=== PATIENT | female | born 1945 | race Caucasian/White ===

== ENCOUNTER 2023-04-18 10:19 | Outpatient (OUT) | payer MEDICARE, OTHER, SELFPAY ==
--- NOTE | 2023-04-18 10:36 | XR_ITS ---
The [address] [address] Patient Name: MAC BRITTON MRN: [id number] date: 1945 Sex: F Assigned Patient Location: [facility] Current Patient Location: [facility] Accession/Order Number: [id number] Exam Date: 04/18/2023 10:48 Report Date: 04/18/2023 11:03 At the request of: CAMILLE OROURKE Procedure: XR knee RT 4V EXAM: XR knee RT 4V HISTORY: Primary Osteoarthritis of Right Knee M17.11, Knee Pain COMPARISON: None. TECHNIQUE: 4 views FINDINGS: There is no acute fracture or dislocation. There are no significant degenerative changes. The soft tissues are unremarkable. XR/XR knee RT 4V IMPRESSION: No acute fracture or dislocation. Electronically authenticated by: MORENITA COLIN Date: 04/18/2023 11:03
== END 2023-04-18 10:20 | disposition home or self-care (01) ==
PROVIDERS: PCP Internal Medicine; Visit Provider Physician Assistant
DX: M25.561 Pain in right knee (principal); G89.29 Other chronic pain; M17.11 Unilateral primary osteoarthritis, right knee
CPT/HCPCS: 73564

== ENCOUNTER 2024-03-02 07:46 | Outpatient (OUT) | payer MEDICARE, OTHER, SELFPAY ==
--- NOTE | 2024-03-02 08:13 | XR_ITS ---
[address] [address] Patient Name: MAC BRITTON MRN: [id number] date: 1945 Sex: F Assigned Patient Location: [facility] Current Patient Location: [facility] Accession/Order Number: [id number] Exam Date: 03/02/2024 08:00 Report Date: 03/02/2024 10:19 At the request of: CAMILLE OROURKE Procedure: XR DEXA axial skeleton EXAMINATION: XR DEXA axial skeleton HISTORY: Estrogen Deficiency E28.39 COMPARISON: DEXA bone densitometry 02/28/2022 TECHNIQUE: Dual-energy X-ray absorptiometry (DXA) was performed. FINDINGS: SPINE ANALYSIS: Average bone mineral density is 1.504 g/cm2. T-score (standard deviation relative to young adult mean): 2.7 . +11.0% change since prior study. HIP ANALYSIS: Lowest bone mineral density is within the right femoral neck, 0.842 g/cm2. T-score (standard deviation relative to young adult mean): -1.4 . -0.4% change since prior study. XR/XR DEXA axial skeleton IMPRESSION: World Health Organization Classification: Osteopenia - Moderate Fracture Risk FRAX: Cannot be calculated. Pharmacologic treatment recommendations * No uniform recommendation applies to all patients. Management plans must be individualized. * Consider initiating pharmacologic treatment in postmenopausal women and men >= 50 years of age who have the following: Primary fracture prevention: * T-score <= - 2.5 at the femoral neck, total hip, lumbar spine, 33% radius (some uncertainty with existing data) by DXA. * Low bone mass (osteopenia: T-score between - 1.0 and - 2.5) at the femoral neck or total hip by DXA with a 10-year hip fracture risk >= 3% or a 10-year major osteoporosis-related fracture risk >= 20% (i.e., clinical vertebral, hip, forearm, or proximal humerus) based on the [place]-adapted FRAXregistered model. Secondary fracture prevention: * Fracture of the hip or vertebra regardless of BMD [4, 5]. * Fracture of proximal humerus, pelvis, or distal forearm in persons with low bone mass (osteopenia: T-score between - 1.0 and - 2.5). The decision to treat should be individualized in persons with a fracture of the proximal humerus, pelvis, or distal forearm who do not have osteopenia or low BMD [12, 13]. Divina MS, Frank SL, Ghada KL, Axel EM, Donavon KG, AJ, Edin ES. The clinician's guide to prevention and treatment of osteoporosis. Osteoporos Int. 2021;33(10):1505-9369. doi: 10.1007/f10616-472-30274-n. Epub 2021Dec 28. Erratum in: Osteoporos Int. 2021Mar 29;: PMID: [id number]; PMCID: [id number]. Electronically authenticated by: SHANON MASSEY Date: 03/02/2024 10:19
== END 2024-03-02 07:47 | disposition home or self-care (01) ==
PROVIDERS: PCP Internal Medicine; Visit Provider Physician Assistant
DX: E28.39 Other primary ovarian failure (principal); M85.80 Other specified disorders of bone density and structure, unspecified site
CPT/HCPCS: 77080